=== PATIENT | female | born 1980 | race Two or more races ===

== ENCOUNTER 2019-12-27 09:07 | Outpatient (CLI) | payer OTHER | END 2019-12-27 12:52 | disposition home or self-care (01) | LOC: NUCLEAR 09:07 | DX: E05.80 Other thyrotoxicosis without thyrotoxic crisis or storm (principal); E04.8 Other specified nontoxic goiter | CPT/HCPCS: 78012; A9531 ==

== ENCOUNTER 2019-12-27 12:45 | Outpatient (CLI) | payer OTHER | END 2019-12-27 12:55 | disposition home or self-care (01) | LOC: SONOGRAMA 12:45 | DX: E05.90 Thyrotoxicosis, unspecified without thyrotoxic crisis or storm (principal); E04.8 Other specified nontoxic goiter ==

== ENCOUNTER 2019-12-28 08:03 | Outpatient (CLI) | payer OTHER | END 2019-12-28 08:07 | disposition home or self-care (01) | LOC: NUCLEAR 08:03 | DX: E05.80 Other thyrotoxicosis without thyrotoxic crisis or storm (principal); E04.8 Other specified nontoxic goiter | CPT/HCPCS: 78013; A9512 ==

== ENCOUNTER 2020-01-02 11:25 | Outpatient (CLI) | payer OTHER | END 2020-01-02 11:37 | disposition home or self-care (01) | LOC: NUCLEAR 11:25 | DX: E05.80 Other thyrotoxicosis without thyrotoxic crisis or storm (principal); E04.8 Other specified nontoxic goiter | CPT/HCPCS: 79005; A9517 ==